=== PATIENT | female | born 1985 | race Caucasian/White ===

== ENCOUNTER 2019-02-06 18:38 | Emergency (ER) | payer OTHER ==
[2019-02-06 18:54] VITALS: BP 144/88
--- NOTE | 2019-02-06 19:05 | UC ---
Dental HPI - HPI Summary HPI Summary: concerned with dental pain, and infection, appt with dentist 02/18/19. right lower molar - History of Current Complaint Chief Complaint: UCDentalProblem Stated Complaint: DENTAL COMPLAINT Time Seen by Provider: 02/06/19 19:03 Hx Obtained From: Patient Hx Last Menstrual Period: 02/06/19 ?: No Onset/Duration: Sudden Onset, Lasting Days Severity: Moderate Pain Intensity: 6 Related History: Previous Dental Care on Same Tooth - Allergies/Home Medications Allergies/Adverse Reactions: Allergies Allergy/AdvReac Type Severity Reaction Status Date / Time MS Hydrocodone [Hydrocodone] Allergy Itching Verified 02/06/19 18:54 MS Erythromycin AdvReac Intermediate GI Upset Verified 02/06/19 18:54 [Erythromycin] PMH/Surg Hx/FS Hx/Imm Hx Previously Healthy: Yes - Surgical History Surgical History: Yes Surgery Procedure, Year, and Place: , 2008 2012, [facility]. Cholecystectomy , 2004, [facility]. Ovarian Cyst, 2007, [facility]. T&A, 1997, [facility] - Family History Known Family History: Positive: Hypertension - Social History Alcohol Use: 3-4 a few times a week Substance Use Type: None Smoking Status (MU): Light Every Day Tobacco Smoker Type: Cigarettes Amount Used/How Often: 2-3 CIGS PER DAY Length of Time of Smoking/Using Tobacco: 10 Years Have You Smoked in the Last Year: Yes - Immunization History Most Recent Influenza Vaccination: Current for the season Review of Systems All Other Systems Reviewed And Are Negative: Yes ENT: Positive: Dental Pain Physical Exam Triage Information Reviewed: Yes Appearance: Well-Nourished, Ill-Appearing, Pain Distress Vital Signs: Initial Vital Signs Temp 99.3 F 02/06/19 18:47 Pulse 104 02/06/19 18:47 Resp 16 02/06/19 18:47 BP 144/88 02/06/19 18:47 Pulse Ox 99 02/06/19 18:47 Vital Signs Reviewed: Yes Eye Exam: Normal ENT Exam: Normal Dental Exam: Normal Dental: Positive: Gross Decay/Caries @, Dental Fracture @, Abscess @ Neck exam: Normal Respiratory Exam: Normal Respiratory: Positive: Chest non-tender, Lungs clear, Normal breath sounds Cardiovascular Exam: Normal Abdominal Exam: Normal Musculoskeletal Exam: Normal Neurological Exam: Normal Psychological Exam: Normal Skin: Positive: Other - psoriasis patches Dental Complaint Course/Dx - Course Course Of Treatment: hx obtained, exam performed ,meds reviewed, treated for dental pain and infection - Differential Dx/Diagnosis Differential Diagnosis/Dx: Dental Abscess, Fractured Tooth Provider Diagnosis: Dental abscess Discharge ED - Sign-Out/Discharge Documenting (check all that apply): Patient Departure All imaging exams completed and their final reports reviewed: No Studies - Discharge Plan Condition: Stable Disposition: HOME Prescriptions: Clindamycin Cap(NF) [Clindamycin Cap 300 mg Cap(NF)] 300 mg PO TID #20 cap Patient Education Materials: Dental Abscess (ED) Referrals: Martina Gamez PA [Primary Care Provider] - Additional Instructions: 1. take the medication as prescribed. 2. FOllow up with the dentist 3. Coconut oil swishes multiple times a day - Billing Disposition and Condition Condition: STABLE Disposition: Home
[2019-02-06] MEDS ORDERED: Clindamycin CAP* 150 MG PO ONE (19:13)
== END 2019-02-06 19:27 | disposition home or self-care (01) ==
LOC: UCCORT 18:38
DX: K04.7 Periapical abscess without sinus (principal); F17.210 Nicotine dependence, cigarettes, uncomplicated; Z88.1 Allergy status to other antibiotic agents; Z88.5 Allergy status to narcotic agent
CPT/HCPCS: 99202; A9270-GY; G0463